=== PATIENT | female | born 1995 | race Two or more races ===

== ENCOUNTER 2021-07-08 12:05 | Outpatient (REF) | payer OTHER, SELFPAY ==
[2021-07-08 12:40] LABS: COVID-19 Test Negative (Negative)
== END 2021-07-08 12:06 | disposition home or self-care (01) ==
LOC: HO.LAB 12:05
PROVIDERS: Visit Provider Internal Medicine
DX: Z20.822 Contact with and (suspected) exposure to COVID-19 (principal)
CPT/HCPCS: 36415; 87635; C9803

== ENCOUNTER 2021-07-23 10:14 | Outpatient (REF) | payer OTHER, SELFPAY ==
[2021-07-23 11:57] LABS: COVID-19 Test Negative (Negative); IDNOW Serial# 16C4AD1C
== END 2021-07-23 10:15 | disposition home or self-care (01) ==
LOC: HO.LAB 10:14
PROVIDERS: Visit Provider Internal Medicine
DX: Z20.822 Contact with and (suspected) exposure to COVID-19 (principal)
CPT/HCPCS: 36415; 87635; C9803